=== PATIENT | female | born 1995 | race Hispanic/Latino ===

== ENCOUNTER 2018-12-20 19:05 | Emergency (ER) | payer MEDICAID ==
[2018-12-20] MEDS ORDERED: SODIUM CHLORIDE 0.9% 1000ML 1,000 ML IV ONE (20:06)
[2018-12-20] MEDS ORDERED: ACETAMINOPHEN 325 MG TAB ONE (20:06)
[2018-12-20 20:16] LABS: BASOPHILS % (AUTO) 0.3 % (0.0-5.0); EOSINOPHILS % (AUTO) 2.4 % (0.0-8.0); HEMATOCRIT 34.9 % (36-48); LYMPHOCYTES % (AUTO) 23.2 % (21.0-51.0); MEAN CORPUSCULAR HEMOGLOBIN 30.3 pg (27.0-33.0); MEAN CORPUSCULAR HGB CONC 34.3 g/dL (32.0-36.0); MEAN CORPUSCULAR VOLUME 88.3 fL (80-100); MONOCYTES % (AUTO) 6.3 % (3.0-13.0); NEUTROPHILS % (AUTO) 67.8 % (40.0-77.0); PLATELET COUNT (AUTO) 300 K/uL (130-400); RED BLOOD CELL COUNT(AUTO) 3.95 MIL/uL (4.00-5.50); WHITE BLOOD COUNT (AUTO) 11.4 K/uL (4.8-10.8)
[2018-12-20 20:17] LABS: APPEARANCE,URINE Clear (CLEAR); BILIRUBIN,URINE Negative (NEGATIVE); COLOR,URINE Yellow (YELLOW); GLUCOSE, URINE (UA) Negative (NEGATIVE); KETONES,URINE Negative (NEGATIVE); LEUKOCYTE ESTERASE ,URINE Negative (NEGATIVE); NITRATE,URINE Negative (NEGATIVE); OCCULT BLOOD,URINE Small (NEGATIVE); PH,URINE 6.5 (5.0-8.0); PROTEIN,URINE Negative (NEGATIVE)
[2018-12-20 20:29] LABS: BACTERIA,URINE Few /HPF (None Seen); SQUAMOUS EPITHELIAL CELL,UR Few /HPF (0-2); WBC,URINE 0-1 /HPF (0-1)
[2018-12-20 20:30] LABS: MUCUS,URINE Rare LPF (None Seen)
[2018-12-20 20:31] LABS: CREATININE 0.4 mg/dL (0.5-1.5); POTASSIUM 3.3 mmol/L (3.5-5.1)
[2018-12-20 20:35] LABS: ALBUMIN 3.5 g/dL (3.5-5.0); BILIRUBIN,TOTAL 0.1 mg/dL (0.2-1.0); TOTAL PROTEIN, SERUM 7.3 g/dL (6.0-8.3)
[2018-12-20] MEDS ORDERED: MAGNESIUM OXIDE 400 MG TABLET PO ONE (21:05)
[2018-12-20] MEDS ORDERED: POTASSIUM CHLORIDE 20 MEQ ERTAB PO ONE (21:05)
== END 2018-12-20 21:34 | disposition home or self-care (01) ==
LOC: EDH 19:05
DX: O21.0 Mild hyperemesis gravidarum (principal); O21.1 Hyperemesis gravidarum with metabolic disturbance; G44.209 Tension-type headache, unspecified, not intractable; Z3A.14 14 weeks gestation of pregnancy
CPT/HCPCS: 36415; 80053; 81001; 85025; 96360; 96372; 99284; J7030

== ENCOUNTER 2019-01-18 20:24 | Observation (INO) | payer MEDICAID ==
[~2019-01-18] VITALS: Ht 157.5 cm; Wt 84.8 kg
[2019-01-18] MEDS ORDERED: GLYB5TAB8 PO (20:42)
[2019-01-18 20:58] LABS: APPEARANCE,URINE Cloudy (CLEAR); BILIRUBIN,URINE Negative (NEGATIVE); COLOR,URINE Yellow (YELLOW); GLUCOSE, URINE (UA) 500 mg/dL (NEGATIVE); KETONES,URINE Trace mg/dL (NEGATIVE); LEUKOCYTE ESTERASE ,URINE Negative (NEGATIVE); NITRATE,URINE Negative (NEGATIVE); OCCULT BLOOD,URINE Small (NEGATIVE); PROTEIN,URINE Trace mg/dL (NEGATIVE)
[2019-01-18 21:05] LABS: AMPHET/METH SCREEN,URINE NEGATIVE (NEGATIVE); BARBITURATE SCREEN, URINE NEGATIVE (NEGATIVE); BENZODIAZEPINES SCREEN,URINE NEGATIVE (NEGATIVE); CANNABINOID SCREEN,URINE NEGATIVE (NEGATIVE); COCAINE SCREEN,URINE NEGATIVE (NEGATIVE); OPIATE SCREEN,URINE NEGATIVE (NEGATIVE); PHENCYCLIDINE SCREEN,URINE NEGATIVE (NEGATIVE)
[2019-01-18 21:08] LABS: WBC,URINE 0-1 /HPF (0-1)
[2019-01-18 21:09] LABS: BACTERIA,URINE Few /HPF (None Seen); MUCUS,URINE Few LPF (None Seen); SQUAMOUS EPITHELIAL CELL,UR Moderate /HPF (0-2)
[2019-01-18] MEDS ORDERED: CEFTRIAXONE SODIUM 1 GM IM SCH (21:30)
[2019-01-18] MEDS ORDERED: CEFTRIAXONE SODIUM 1 GM ONE (22:43)
[2019-01-18] MEDS ORDERED: LIDOCAINE HCL-MPF 1% 2ML VIAL ONE (22:47)
== END 2019-01-18 23:17 | disposition home or self-care (01) ==
LOC: EDH 20:24 → LDH 20:25
PROVIDERS: ADMIT Obstetrics & Gynecology; ATTEND Obstetrics & Gynecology
DX: O26.852 Spotting complicating pregnancy, second trimester (principal); O24.415 Gestational diabetes mellitus in pregnancy, controlled by oral hypoglycemic drugs; Z3A.21 21 weeks gestation of pregnancy
CPT/HCPCS: 59025; 76817; 80305; 81001; 96372; 99284; G0378 ×3; J0696; J3490

== ENCOUNTER 2019-02-05 11:31 | Observation (INO) | payer MEDICAID ==
[~2019-02-05 11:31] MED LIST: GLYB5TAB8 PO
== END 2019-02-05 12:40 | disposition home or self-care (01) ==
LOC: EDH 11:31 → OBSVTOIN 11:58 → LDH 11:58 → INTOOBSV 11:58
PROVIDERS: ADMIT Obstetrics & Gynecology; ATTEND Obstetrics & Gynecology
DX: O9A.212 Injury, poisoning and certain other consequences of external causes complicating pregnancy, second trimester (principal); Z3A.21 21 weeks gestation of pregnancy; V49.49XA Driver injured in collision with other motor vehicles in traffic accident, initial encounter; Y93.89 Activity, other specified; Y92.410 Unspecified street and highway as the place of occurrence of the external cause
CPT/HCPCS: 99284; G0378

== ENCOUNTER 2019-05-10 15:30 | Observation (INO) | payer MEDICAID ==
[2019-05-10 16:35] LABS: APPEARANCE,URINE Cloudy (CLEAR); BILIRUBIN,URINE Negative (NEGATIVE); COLOR,URINE Dark Yellow (YELLOW); GLUCOSE, URINE (UA) >=1000 mg/dL (NEGATIVE); KETONES,URINE Trace mg/dL (NEGATIVE); LEUKOCYTE ESTERASE ,URINE Moderate (NEGATIVE); NITRATE,URINE Positive (NEGATIVE); OCCULT BLOOD,URINE Negative (NEGATIVE); PH,URINE 6.5 (5.0-8.0); PROTEIN,URINE POS 1+ mg/dL (NEGATIVE)
[2019-05-10] MEDS ORDERED: LACTATED RINGERS 1000ML 1,000 ML IV SCH (17:00)
[2019-05-10] MEDS ORDERED: CEFTRIAXONE SODIUM 1 GM IVP SCH (17:00)
[2019-05-10] MEDS ORDERED: LACTATED RINGERS 1000ML IV SCH (17:00)
[2019-05-10 17:07] LABS: BACTERIA,URINE Many /HPF (None Seen); MUCUS,URINE Few LPF (None Seen); RBC,URINE None Seen /HPF (0-1)
== END 2019-05-10 17:40 | disposition home or self-care (01) ==
LOC: EDH 15:30 → LDH 15:31
PROVIDERS: ADMIT Obstetrics & Gynecology; ATTEND Obstetrics & Gynecology
DX: O26.893 Other specified pregnancy related conditions, third trimester (principal); Z3A.37 37 weeks gestation of pregnancy
CPT/HCPCS: 76819; 81001; 82948; 96374; G0378 ×2; J0696; J7120; 96360

== ENCOUNTER 2019-05-21 18:33 | Observation (INO) | payer MEDICAID ==
[~2019-05-21] VITALS: Ht 157.5 cm; Wt 97.1 kg
[2019-05-21 19:38] VITALS: BP 145/93
[2019-05-21 19:53] LABS: APPEARANCE,URINE CLOUDY (CLEAR); BILIRUBIN,URINE NEGATIVE (NEGATIVE); COLOR,URINE YELLOW (YELLOW); GLUCOSE, URINE (UA) NEGATIVE (NEGATIVE); KETONES,URINE NEGATIVE (NEGATIVE); LEUKOCYTE ESTERASE ,URINE TRACE (NEGATIVE); NITRATE,URINE NEGATIVE (NEGATIVE); OCCULT BLOOD,URINE NEGATIVE (NEGATIVE); PROTEIN,URINE 100 mg/dL (NEGATIVE); UROBILINOGEN,URINE 0.2 mg/dL (0.2-1.0)
[2019-05-21 20:03] LABS: BACTERIA,URINE Moderate /HPF (None Seen); RBC,URINE 0-1 /HPF (0-1); SQUAMOUS EPITHELIAL CELL,UR Many /HPF (0-2)
[2019-05-21 20:04] LABS: AMORPHOUS SEDIMENT,UR Few /LPF (None Seen)
[2019-05-21 20:10] LABS: AMPHET/METH SCREEN,URINE NEGATIVE (NEGATIVE); BARBITURATE SCREEN, URINE NEGATIVE (NEGATIVE); BENZODIAZEPINES SCREEN,URINE NEGATIVE (NEGATIVE); CANNABINOID SCREEN,URINE NEGATIVE (NEGATIVE); COCAINE SCREEN,URINE NEGATIVE (NEGATIVE); OPIATE SCREEN,URINE NEGATIVE (NEGATIVE); PHENCYCLIDINE SCREEN,URINE NEGATIVE (NEGATIVE)
[2019-05-21] MEDS ORDERED: LACTATED RINGERS 1000ML IV SCH (20:30)
[2019-05-21] MEDS ORDERED: CEFTRIAXONE SODIUM 1 GM IVP SCH (21:20)
== END 2019-05-21 21:00 | disposition home or self-care (01) ==
LOC: EDH 18:33 → LDH 18:34
PROVIDERS: ADMIT Obstetrics & Gynecology; ATTEND Obstetrics & Gynecology
DX: O24.419 Gestational diabetes mellitus in pregnancy, unspecified control (principal); Z3A.37 37 weeks gestation of pregnancy
CPT/HCPCS: 80305; 81001; 96374; 99284; G0378 ×2; J0696; J7120; 96360

== ENCOUNTER 2022-09-20 07:02 | Emergency (ER) | payer MEDICAID ==
[~2022-09-20] VITALS: Ht 157.5 cm; Wt 92.5 kg
[~2022-09-20 07:02] MED LIST changes: +PRED20TA3 PO; +PREN-202 PO
[2022-09-20 07:03] VITALS: BP 116/77
[2022-09-20] MEDS ORDERED: HYDR30CR79 RC (08:49)
== END 2022-09-20 08:55 | disposition home or self-care (01) ==
LOC: EDH 07:02
DX: K64.4 Residual hemorrhoidal skin tags (principal); Z79.52 Long term (current) use of systemic steroids; Z79.84 Long term (current) use of oral hypoglycemic drugs